=== PATIENT | male | born 1990 | race Caucasian/White ===

== ENCOUNTER 2017-08-14 17:19 | Emergency (ER) | payer OTHER ==
[~2017-08-14] VITALS: Ht 170.2 cm; Wt 74.7 kg
[2017-08-14 18:00] LABS: HEMATOCRIT 42.2 % (38.0-50.0); MCH 30.8 PG (29.0-34.0); MCHC 33.2 G/DL (30.0-36.0); PLATELET COUNT 296 K/uL (156-360); RBC DIS.WIDTH-CV 13.2 % (11.8-14.6); RBC DIS.WIDTH-SD 45.2 % (39-53); RED BLOOD COUNT 4.54 M/uL (4.00-5.50); WHITE BLOOD COUNT 6.7 K/uL (4.1-10.2)
[2017-08-14 18:06] LABS: ALBUMIN 4.4 g/dL (3.2-4.8)
[2017-08-14 18:07] LABS: CHLORIDE 101 mEq/L (99-109); POTASSIUM 4.4 mEq/L (3.7-5.4); SODIUM 139 mEq/L (136-147)
[2017-08-14 18:09] LABS: GLUCOSE 116 mg/dL (70-99); TOTAL PROTEIN 7.7 g/dL (6.4-8.3)
[2017-08-14 18:11] LABS: TOTAL BILIRUBIN 0.2 mg/dL (0.0-1.0)
[2017-08-14 18:12] LABS: ALKALINE PHOSPHATASE 71 IU/L (3-129)
[2017-08-14 18:14] LABS: AST (GOT) 22 IU/L (2-34); UREA NITROGEN (BUN) 11 mg/dL (9-23)
[2017-08-14 18:16] LABS: ALT (GPT) 66 IU/L (3-49)
[2017-08-14 18:26] LABS: GFR ESTIMATE (CALCULATED) > 59 mL/min/ (58.99-99999)
[2017-08-14 19:46] LABS: LIPASE 15 U/L (1.0-51.0)
[2017-08-14] MEDS ORDERED: BENTYL10 MG PO (22:16)
[2017-08-14] MEDS ORDERED: ZANTAC150 MG PO (22:16)
[2017-08-14 22:39] VITALS: BP 116/72
== END 2017-08-14 22:41 | disposition home or self-care (01) ==
LOC: EME 17:19
DX: R10.12 Left upper quadrant pain (principal); R10.13 Epigastric pain; G89.29 Other chronic pain; M79.7 Fibromyalgia; M19.90 Unspecified osteoarthritis, unspecified site; M77.9 Enthesopathy, unspecified; F17.200 Nicotine dependence, unspecified, uncomplicated; Z90.49 Acquired absence of other specified parts of digestive tract
CPT/HCPCS: 74177; 80053; 81003; 83690; 85027; 99281; 99285; J1885; J2405; J7030

== ENCOUNTER 2017-10-07 22:57 | Emergency (ER) | payer OTHER ==
[~2017-10-07] VITALS: Ht 170.2 cm; Wt 70.4 kg
[~2017-10-07 22:57] MED LIST: BENTYL10 MG PO; ZANTAC150 MG PO
[2017-10-07 23:16] LABS: HEMATOCRIT 40.4 % (38.0-50.0); HEMOGLOBIN 14.1 G/DL (12.5-16.6); MCHC 34.9 G/DL (30.0-36.0); MCV 88.8 FL (86-99); PLATELET COUNT 322 K/uL (156-360); RBC DIS.WIDTH-CV 14.5 % (11.8-14.6); RBC DIS.WIDTH-SD 46.7 % (39-53); RED BLOOD COUNT 4.55 M/uL (4.00-5.50); WHITE BLOOD COUNT 6.1 K/uL (4.1-10.2)
[2017-10-07 23:25] LABS: CHLORIDE 109 mEq/L (99-109); SODIUM 143 mEq/L (136-147)
[2017-10-07 23:27] LABS: GLUCOSE 100 mg/dL (70-99)
[2017-10-07 23:30] LABS: SERUM ETHYL ALCOHOL 146 mg/dL
[2017-10-07 23:31] LABS: CREATININE 0.8 mg/dL (0.6-1.3); GFR ESTIMATE (CALCULATED) > 59 mL/min/ (58.99-99999); UREA NITROGEN (BUN) 10 mg/dL (9-23)
[2017-10-08 00:48] LABS: AMPHETAMINE PRESUMPTIVE POSITIVE (500 ng/mL); BARBITURATES NEGATIVE (200 ng/mL); BENZODIAZEPINES PRESUMPTIVE POSITIVE (150 ng/mL); BUPRENORPHINE NEGATIVE (10 ng/mL); COCAINE NEGATIVE (150 ng/mL); METHADONE NEGATIVE (200 ng/mL); METHAMPHETAMINE NEGATIVE (500 ng/mL); OPIATES (MORPHINE) NEGATIVE (100 ng/mL); OXYCODONE NEGATIVE (100 ng/mL); PHENCYCLIDINE NEGATIVE (25 ng/mL); PROPOXYPHENE NEGATIVE (300 ng/mL); THC CANNABINOIDS PRESUMPTIVE POSITIVE (50 ng/mL); TRICYCLIC ANTIDEPRESSANTS NEGATIVE (300 ng/mL)
[2017-10-08 01:37] VITALS: BP 128/80
[2017-10-08 04:47] LABS: BENZODIAZEPINES, URINE SCREEN POSITIVE (200 ng/mL)
== END 2017-10-08 01:59 | disposition home or self-care (01) ==
LOC: EME → EDBD 22:57 → EME 22:57
DX: F32.9 Major depressive disorder, single episode, unspecified (principal); F10.129 Alcohol abuse with intoxication, unspecified; Y90.6 Blood alcohol level of 120-199 mg/100 ml; F90.9 Attention-deficit hyperactivity disorder, unspecified type; F41.9 Anxiety disorder, unspecified; M79.7 Fibromyalgia; Z87.891 Personal history of nicotine dependence
CPT/HCPCS: 80048; 84999; 85027; 90839; 99281; 99285; G0480

== ENCOUNTER 2017-10-11 21:02 | Emergency (ER) | payer OTHER ==
[~2017-10-11] VITALS: Ht 170.2 cm; Wt 71.0 kg
[2017-10-11 21:42] LABS: BASOPHIL (%) 1.1 % (0-1); BASOPHIL COUNT 0.1 K/uL (0-0.1); EOSINOPHIL (%) 2.7 % (0-5); EOSINOPHIL COUNT 0.2 K/uL (0-0.3); HEMATOCRIT 38.9 % (38.0-50.0); HEMOGLOBIN 13.6 G/DL (12.5-16.6); IMMATURE GRANULOCYTE (%) 0.2 % (0.0-0.7); LYMPHOCYTE (%) 45.4 % (15-42); LYMPHOCYTE COUNT 2.9 K/uL (1.0-2.8); MCH 31.5 PG (29.0-34.0); MONOCYTE (%) 10.9 % (3-12); MONOCYTE COUNT 0.7 K/uL (0-0.8); NEUTROPHIL (%) 39.7 % (45-76); NEUTROPHIL COUNT 2.6 K/uL (1.8-6.4); PLATELET COUNT 336 K/uL (156-360); RBC DIS.WIDTH-CV 14.4 % (11.8-14.6); RBC DIS.WIDTH-SD 47.3 % (39-53); RED BLOOD COUNT 4.32 M/uL (4.00-5.50); WHITE BLOOD COUNT 6.4 K/uL (4.1-10.2)
[2017-10-11 21:52] LABS: ALBUMIN 4.1 g/dL (3.2-4.8); CHLORIDE 104 mEq/L (99-109); SODIUM 138 mEq/L (136-147)
[2017-10-11 21:55] LABS: GLUCOSE 108 mg/dL (70-99); TOTAL PROTEIN 6.9 g/dL (6.4-8.3)
[2017-10-11 21:56] LABS: TOTAL BILIRUBIN 0.5 mg/dL (0.0-1.0)
[2017-10-11 21:58] LABS: CREATININE 0.9 mg/dL (0.6-1.3); GFR ESTIMATE (CALCULATED) > 59 mL/min/ (58.99-99999); SERUM ETHYL ALCOHOL < 10 mg/dL
[2017-10-11 21:59] LABS: ALKALINE PHOSPHATASE 79 IU/L (3-129)
[2017-10-11 22:00] LABS: AST (GOT) 26 IU/L (2-34); UREA NITROGEN (BUN) 7 mg/dL (9-23)
[2017-10-11 22:02] LABS: ACETAMINOPHEN (TYLENOL) < 10 mcg/mL (10-30); ALT (GPT) 201 IU/L (3-49); SALICYLATE < 5.0 MG/DL (15-30)
[2017-10-11 22:03] LABS: LIPASE 7 U/L (1.0-51.0)
[2017-10-11 22:30] LABS: APPEARANCE CLEAR ((CLEAR)); BILIRUBIN NEGATIVE; BLOOD NEGATIVE; COLOR YELLOW ((YELLOW)); GLUCOSE (STRIP) NEGATIVE; KETONES NEGATIVE; LEUKOCYTES NEGATIVE; NITRITE NEGATIVE; PROTEIN (STRIP) NEGATIVE; SPECIFIC GRAVITY 1.009 (1.000-1.030)
[2017-10-11 22:39] LABS: AMPHETAMINE PRESUMPTIVE POSITIVE (500 ng/mL); BARBITURATES NEGATIVE (200 ng/mL); BENZODIAZEPINES PRESUMPTIVE POSITIVE (150 ng/mL); BUPRENORPHINE NEGATIVE (10 ng/mL); COCAINE NEGATIVE (150 ng/mL); METHADONE NEGATIVE (200 ng/mL); METHAMPHETAMINE NEGATIVE (500 ng/mL); OPIATES (MORPHINE) NEGATIVE (100 ng/mL); OXYCODONE PRESUMPTIVE POSITIVE (100 ng/mL); PHENCYCLIDINE NEGATIVE (25 ng/mL); PROPOXYPHENE NEGATIVE (300 ng/mL); THC CANNABINOIDS PRESUMPTIVE POSITIVE (50 ng/mL); TRICYCLIC ANTIDEPRESSANTS NEGATIVE (300 ng/mL)
[2017-10-11 23:20] LABS: BENZODIAZEPINES, URINE SCREEN POSITIVE (200 ng/mL)
[2017-10-11 23:23] VITALS: BP 139/84
== END 2017-10-11 23:25 | disposition home or self-care (01) ==
LOC: EME 21:02
PROVIDERS: Emergency Medicine
DX: T40.601A Poisoning by unspecified narcotics, accidental (unintentional), initial encounter (principal); F19.10 Other psychoactive substance abuse, uncomplicated; G89.29 Other chronic pain; M79.7 Fibromyalgia; F31.9 Bipolar disorder, unspecified; F90.9 Attention-deficit hyperactivity disorder, unspecified type; F17.200 Nicotine dependence, unspecified, uncomplicated
CPT/HCPCS: 70450; 71046; 80053; 81003; 82948; 83605; 83690; 84999; 85025; 93005; 99281; 99285; G0480; J0500; J7030

== ENCOUNTER 2017-10-12 12:03 | Emergency (ER) | payer OTHER ==
[~2017-10-12] VITALS: Ht 172.7 cm; Wt 72.9 kg
[2017-10-12 12:24] LABS: BASOPHIL (%) 1.2 % (0-1); BASOPHIL COUNT 0.1 K/uL (0-0.1); EOSINOPHIL (%) 2.9 % (0-5); EOSINOPHIL COUNT 0.2 K/uL (0-0.3); HEMATOCRIT 35.4 % (38.0-50.0); HEMOGLOBIN 12.4 G/DL (12.5-16.6); IMMATURE GRANULOCYTE (%) 0.2 % (0.0-0.7); LYMPHOCYTE (%) 38.4 % (15-42); MCH 31.5 PG (29.0-34.0); MCV 89.8 FL (86-99); MONOCYTE (%) 10.2 % (3-12); MONOCYTE COUNT 0.5 K/uL (0-0.8); NEUTROPHIL (%) 47.1 % (45-76); NEUTROPHIL COUNT 2.4 K/uL (1.8-6.4); PLATELET COUNT 327 K/uL (156-360); RBC DIS.WIDTH-CV 14.5 % (11.8-14.6); RBC DIS.WIDTH-SD 47.8 % (39-53); RED BLOOD COUNT 3.94 M/uL (4.00-5.50); WHITE BLOOD COUNT 5.2 K/uL (4.1-10.2)
[2017-10-12 12:32] LABS: ALBUMIN 3.8 g/dL (3.2-4.8); CHLORIDE 105 mEq/L (99-109); POTASSIUM 3.9 mEq/L (3.7-5.4); SODIUM 138 mEq/L (136-147)
[2017-10-12 12:34] LABS: GLUCOSE 106 mg/dL (70-99); TOTAL PROTEIN 6.3 g/dL (6.4-8.3)
[2017-10-12 12:36] LABS: TOTAL BILIRUBIN 0.4 mg/dL (0.0-1.0)
[2017-10-12 12:37] LABS: SERUM ETHYL ALCOHOL < 10 mg/dL
[2017-10-12 12:38] LABS: ALKALINE PHOSPHATASE 70 IU/L (3-129); CREATININE 0.8 mg/dL (0.6-1.3); GFR ESTIMATE (CALCULATED) > 59 mL/min/ (58.99-99999)
[2017-10-12 12:39] LABS: AST (GOT) 27 IU/L (2-34); DIRECT BILIRUBIN 0.2 mg/dL (0.0-0.3); UREA NITROGEN (BUN) 5 mg/dL (9-23)
[2017-10-12 12:41] LABS: ALT (GPT) 151 IU/L (3-49)
[2017-10-12 13:14] LABS: APPEARANCE CLEAR ((CLEAR)); BILIRUBIN NEGATIVE; BLOOD NEGATIVE; COLOR YELLOW ((YELLOW)); GLUCOSE (STRIP) NEGATIVE; KETONES NEGATIVE; LEUKOCYTES NEGATIVE; NITRITE NEGATIVE; PROTEIN (STRIP) NEGATIVE
[2017-10-12 13:27] LABS: AMPHETAMINE PRESUMPTIVE POSITIVE (500 ng/mL); BARBITURATES NEGATIVE (200 ng/mL); BENZODIAZEPINES PRESUMPTIVE POSITIVE (150 ng/mL); BUPRENORPHINE NEGATIVE (10 ng/mL); COCAINE NEGATIVE (150 ng/mL); METHADONE NEGATIVE (200 ng/mL); METHAMPHETAMINE NEGATIVE (500 ng/mL); OPIATES (MORPHINE) NEGATIVE (100 ng/mL); OXYCODONE PRESUMPTIVE POSITIVE (100 ng/mL); PHENCYCLIDINE NEGATIVE (25 ng/mL); PROPOXYPHENE NEGATIVE (300 ng/mL); THC CANNABINOIDS PRESUMPTIVE POSITIVE (50 ng/mL); TRICYCLIC ANTIDEPRESSANTS NEGATIVE (300 ng/mL)
[2017-10-12 14:19] LABS: BENZODIAZEPINES, URINE SCREEN POSITIVE (200 ng/mL)
[2017-10-12 16:15] VITALS: BP 117/83
== END 2017-10-12 17:25 | disposition home or self-care (01) ==
LOC: EME 12:03
PROVIDERS: Emergency Medicine
DX: F11.129 Opioid abuse with intoxication, unspecified (principal); T40.2X1A Poisoning by other opioids, accidental (unintentional), initial encounter; M19.90 Unspecified osteoarthritis, unspecified site; M79.7 Fibromyalgia; F90.9 Attention-deficit hyperactivity disorder, unspecified type; F31.9 Bipolar disorder, unspecified; F17.200 Nicotine dependence, unspecified, uncomplicated
CPT/HCPCS: 70450; 71045; 80048; 80076; 81003; 84999; 85025; 93005; 99281; 99285; G0480; J7030

== ENCOUNTER 2017-10-17 19:33 | Emergency (ER) | payer OTHER ==
[~2017-10-17] VITALS: Ht 170.2 cm; Wt 71.6 kg
[2017-10-17 22:26] LABS: HEMATOCRIT 36.4 % (38.0-50.0); MCH 32.1 PG (29.0-34.0); MCHC 35.7 G/DL (30.0-36.0); MCV 89.9 FL (86-99); PLATELET COUNT 305 K/uL (156-360); RBC DIS.WIDTH-CV 14.6 % (11.8-14.6); RED BLOOD COUNT 4.05 M/uL (4.00-5.50); WHITE BLOOD COUNT 8.3 K/uL (4.1-10.2)
[2017-10-17 22:38] LABS: ALBUMIN 3.6 g/dL (3.2-4.8); CHLORIDE 105 mEq/L (99-109); POTASSIUM 3.6 mEq/L (3.7-5.4)
[2017-10-17 22:40] LABS: APPEARANCE SL.HAZY ((CLEAR)); BILIRUBIN NEGATIVE; BLOOD SMALL; COLOR YELLOW ((YELLOW)); GLUCOSE (STRIP) NEGATIVE; KETONES NEGATIVE; LEUKOCYTES NEGATIVE; NITRITE NEGATIVE; PROTEIN (STRIP) NEGATIVE; SPECIFIC GRAVITY 1.013 (1.000-1.030)
[2017-10-17 22:40] LABS: GLUCOSE 114 mg/dL (70-99); TOTAL PROTEIN 6.2 g/dL (6.4-8.3)
[2017-10-17 22:41] LABS: SODIUM 145 mEq/L (136-147)
[2017-10-17 22:43] LABS: SERUM ETHYL ALCOHOL < 10 mg/dL
[2017-10-17 22:43] LABS: BACTERIA NONE SEEN /HPF; EPITHELIAL CELLS NONE SEEN /HPF; MUCUS TRACE /LPF; RED BLOOD CELLS 30-40 /HPF (0-5); WHITE BLOOD CELLS 0-5 /HPF (0-5)
[2017-10-17 22:44] LABS: CREATININE 0.8 mg/dL (0.6-1.3); GFR ESTIMATE (CALCULATED) > 59 mL/min/ (58.99-99999)
[2017-10-17 22:45] LABS: ALKALINE PHOSPHATASE 68 IU/L (3-129)
[2017-10-17 22:46] LABS: AST (GOT) 18 IU/L (2-34); TOTAL BILIRUBIN 0.2 mg/dL (0.0-1.0); UREA NITROGEN (BUN) 11 mg/dL (9-23)
[2017-10-17 22:47] LABS: SALICYLATE < 5.0 MG/DL (15-30)
[2017-10-17 22:48] LABS: ACETAMINOPHEN (TYLENOL) < 10 mcg/mL (10-30); ALT (GPT) 41 IU/L (3-49)
[2017-10-17 22:59] LABS: AMPHETAMINE NEGATIVE (500 ng/mL); BARBITURATES NEGATIVE (200 ng/mL); BENZODIAZEPINES PRESUMPTIVE POSITIVE (150 ng/mL); BUPRENORPHINE NEGATIVE (10 ng/mL); COCAINE NEGATIVE (150 ng/mL); METHADONE NEGATIVE (200 ng/mL); METHAMPHETAMINE NEGATIVE (500 ng/mL); OPIATES (MORPHINE) NEGATIVE (100 ng/mL); OXYCODONE NEGATIVE (100 ng/mL); PHENCYCLIDINE NEGATIVE (25 ng/mL); PROPOXYPHENE NEGATIVE (300 ng/mL); THC CANNABINOIDS PRESUMPTIVE POSITIVE (50 ng/mL); TRICYCLIC ANTIDEPRESSANTS NEGATIVE (300 ng/mL)
[2017-10-17 23:48] VITALS: BP 111/67
[2017-10-18 00:34] LABS: BENZODIAZEPINES, URINE SCREEN POSITIVE (200 ng/mL)
== END 2017-10-17 23:49 | disposition home or self-care (01) ==
LOC: EME 19:33
PROVIDERS: Emergency Medicine
DX: S09.90XA Unspecified injury of head, initial encounter (principal); S16.1XXA Strain of muscle, fascia and tendon at neck level, initial encounter; W01.0XXA Fall on same level from slipping, tripping and stumbling without subsequent striking against object, initial encounter; Y93.01 Activity, walking, marching and hiking; F12.90 Cannabis use, unspecified, uncomplicated; Z72.89 Other problems related to lifestyle; Z59.0 Homelessness
CPT/HCPCS: 70450; 71045; 72125; 80053; 80175 90; 81003; 82140; 84999; 85027; 93005; 99281; 99284; G0480

== ENCOUNTER 2017-10-18 13:02 | Emergency (ER) | payer OTHER ==
[~2017-10-18] VITALS: Ht 170.2 cm; Wt 74.9 kg
[2017-10-18 14:43] VITALS: BP 138/84
== END 2017-10-18 14:44 | disposition home or self-care (01) ==
LOC: EME 13:02
DX: S80.01XA Contusion of right knee, initial encounter (principal); W17.81XA Fall down embankment (hill), initial encounter; W22.09XA Striking against other stationary object, initial encounter; Y92.480 Sidewalk as the place of occurrence of the external cause; Y93.01 Activity, walking, marching and hiking; Z91.81 History of falling
CPT/HCPCS: 73564; 99281; 99284

== ENCOUNTER 2017-10-18 19:21 | Emergency (ER) | payer OTHER ==
[~2017-10-18] VITALS: Ht 170.2 cm; Wt 72.7 kg
[2017-10-18 20:19] LABS: HEMATOCRIT 37.2 % (38.0-50.0); HEMOGLOBIN 13.1 G/DL (12.5-16.6); MCH 31.6 PG (29.0-34.0); MCHC 35.2 G/DL (30.0-36.0); MCV 89.6 FL (86-99); PLATELET COUNT 302 K/uL (156-360); RBC DIS.WIDTH-CV 14.6 % (11.8-14.6); RBC DIS.WIDTH-SD 48.1 % (39-53); RED BLOOD COUNT 4.15 M/uL (4.00-5.50)
[2017-10-18 20:31] LABS: CHLORIDE 102 mEq/L (99-109); POTASSIUM 3.9 mEq/L (3.7-5.4); SODIUM 140 mEq/L (136-147)
[2017-10-18 20:33] LABS: GLUCOSE 93 mg/dL (70-99)
[2017-10-18 20:36] LABS: SERUM ETHYL ALCOHOL < 10 mg/dL
[2017-10-18 20:37] LABS: CREATININE 0.9 mg/dL (0.6-1.3); GFR ESTIMATE (CALCULATED) > 59 mL/min/ (58.99-99999)
[2017-10-18 20:38] LABS: UREA NITROGEN (BUN) 8 mg/dL (9-23)
[2017-10-18 20:40] LABS: AMPHETAMINE NEGATIVE (500 ng/mL); BARBITURATES NEGATIVE (200 ng/mL); BENZODIAZEPINES PRESUMPTIVE POSITIVE (150 ng/mL); BUPRENORPHINE NEGATIVE (10 ng/mL); COCAINE NEGATIVE (150 ng/mL); METHADONE NEGATIVE (200 ng/mL); METHAMPHETAMINE NEGATIVE (500 ng/mL); OPIATES (MORPHINE) NEGATIVE (100 ng/mL); OXYCODONE NEGATIVE (100 ng/mL); PHENCYCLIDINE NEGATIVE (25 ng/mL); PROPOXYPHENE NEGATIVE (300 ng/mL); THC CANNABINOIDS PRESUMPTIVE POSITIVE (50 ng/mL); TRICYCLIC ANTIDEPRESSANTS NEGATIVE (300 ng/mL)
[2017-10-18 21:13] LABS: BENZODIAZEPINES, URINE SCREEN POSITIVE (200 ng/mL)
[2017-10-18 23:13] VITALS: BP 146/81
== END 2017-10-18 23:14 | disposition home or self-care (01) ==
LOC: EME 19:21
PROVIDERS: Emergency Medicine
DX: F32.9 Major depressive disorder, single episode, unspecified (principal)
CPT/HCPCS: 80048; 84999; 85027; 90839; 99281; 99284; G0480

== ENCOUNTER 2017-10-22 20:07 | Emergency (ER) | payer OTHER ==
[~2017-10-22] VITALS: Ht 170.2 cm; Wt 70.7 kg
[2017-10-22 20:39] LABS: HEMATOCRIT 41.1 % (38.0-50.0); HEMOGLOBIN 14.7 G/DL (12.5-16.6); MCH 31.9 PG (29.0-34.0); MCHC 35.8 G/DL (30.0-36.0); MCV 89.2 FL (86-99); PLATELET COUNT 359 K/uL (156-360); RBC DIS.WIDTH-CV 14.6 % (11.8-14.6); RBC DIS.WIDTH-SD 47.5 % (39-53); RED BLOOD COUNT 4.61 M/uL (4.00-5.50); WHITE BLOOD COUNT 8.9 K/uL (4.1-10.2)
[2017-10-22 20:47] LABS: ALBUMIN 4.3 g/dL (3.2-4.8); CHLORIDE 102 mEq/L (99-109); POTASSIUM 4.3 mEq/L (3.7-5.4); SODIUM 136 mEq/L (136-147)
[2017-10-22 20:49] LABS: GLUCOSE 97 mg/dL (70-99)
[2017-10-22 20:53] LABS: ALKALINE PHOSPHATASE 77 IU/L (3-129); CREATININE 0.9 mg/dL (0.6-1.3); GFR ESTIMATE (CALCULATED) > 59 mL/min/ (58.99-99999)
[2017-10-22 20:54] LABS: UREA NITROGEN (BUN) 15 mg/dL (9-23)
[2017-10-22 20:56] LABS: ALT (GPT) 29 IU/L (3-49); LIPASE 34 U/L (1.0-51.0)
[2017-10-22 20:59] LABS: AST (GOT) 27 IU/L (2-34); TOTAL BILIRUBIN 0.3 mg/dL (0.0-1.0); TOTAL PROTEIN 7.4 g/dL (6.4-8.3)
[2017-10-22] MEDS ORDERED: LIBRIUM25 MG PO (21:00)
[2017-10-22 23:08] VITALS: BP 120/71
== END 2017-10-22 23:17 | disposition home or self-care (01) ==
LOC: EME → EDBD 20:07 → EME 23:17
PROVIDERS: Emergency Medicine
DX: F13.239 Sedative, hypnotic or anxiolytic dependence with withdrawal, unspecified (principal); F31.9 Bipolar disorder, unspecified; M79.7 Fibromyalgia; F17.200 Nicotine dependence, unspecified, uncomplicated
CPT/HCPCS: 80053; 83690; 85027; 99281; 99285; J2765; J7030

== ENCOUNTER 2017-10-26 05:15 | Emergency (ER) | payer OTHER ==
[~2017-10-26] VITALS: Ht 170.2 cm; Wt 65.8 kg
[~2017-10-26 05:15] MED LIST changes: +LIBRIUM25 MG PO
[2017-10-26] MEDS ORDERED: PROTONIX40 MG PO (05:51)
[2017-10-26 06:13] VITALS: BP 136/85
== END 2017-10-26 06:15 | disposition home or self-care (01) ==
LOC: EME → EDBD 05:15 → EME 05:15
DX: R10.13 Epigastric pain (principal); M79.7 Fibromyalgia; F31.9 Bipolar disorder, unspecified; F17.200 Nicotine dependence, unspecified, uncomplicated
CPT/HCPCS: 99281; 99284

== ENCOUNTER 2017-11-05 20:12 | Emergency (ER) | payer OTHER ==
[~2017-11-05] VITALS: Ht 165.1 cm; Wt 72.3 kg
[~2017-11-05 20:12] MED LIST changes: +PROTONIX40 MG PO
[2017-11-05 21:57] LABS: APPEARANCE CLEAR ((CLEAR)); BILIRUBIN NEGATIVE; BLOOD NEGATIVE; COLOR YELLOW ((YELLOW)); GLUCOSE (STRIP) NEGATIVE; KETONES NEGATIVE; LEUKOCYTES NEGATIVE; NITRITE NEGATIVE; PROTEIN (STRIP) NEGATIVE; SPECIFIC GRAVITY 1.019 (1.000-1.030); UCUL ADDED? NO; UROBILINOGEN 0.2 MG/DL (0.2-1.0)
[2017-11-05 22:13] LABS: AMPHETAMINE NEGATIVE (500 ng/mL); BARBITURATES NEGATIVE (200 ng/mL); BENZODIAZEPINES NEGATIVE (150 ng/mL); BUPRENORPHINE NEGATIVE (10 ng/mL); COCAINE PRESUMPTIVE POSITIVE (150 ng/mL); METHADONE NEGATIVE (200 ng/mL); METHAMPHETAMINE NEGATIVE (500 ng/mL); OPIATES (MORPHINE) NEGATIVE (100 ng/mL); OXYCODONE NEGATIVE (100 ng/mL); PHENCYCLIDINE NEGATIVE (25 ng/mL); PROPOXYPHENE NEGATIVE (300 ng/mL); THC CANNABINOIDS NEGATIVE (50 ng/mL); TRICYCLIC ANTIDEPRESSANTS NEGATIVE (300 ng/mL)
[2017-11-05 22:31] LABS: HEMOGLOBIN 15.3 G/DL (12.5-16.6); MCH 31.9 PG (29.0-34.0); MCHC 35.6 G/DL (30.0-36.0); MCV 89.8 FL (86-99); PLATELET COUNT 393 K/uL (156-360); RBC DIS.WIDTH-CV 14.6 % (11.8-14.6); RBC DIS.WIDTH-SD 48.4 % (39-53); RED BLOOD COUNT 4.79 M/uL (4.00-5.50); WHITE BLOOD COUNT 9.1 K/uL (4.1-10.2)
[2017-11-05 22:47] LABS: ALBUMIN 4.6 g/dL (3.2-4.8)
[2017-11-05 22:48] LABS: CHLORIDE 106 mEq/L (99-109); POTASSIUM 4.7 mEq/L (3.7-5.4); SODIUM 142 mEq/L (136-147)
[2017-11-05 22:50] LABS: GLUCOSE 100 mg/dL (70-99); TOTAL PROTEIN 7.6 g/dL (6.4-8.3)
[2017-11-05 22:52] LABS: TOTAL BILIRUBIN 0.3 mg/dL (0.0-1.0)
[2017-11-05 22:53] LABS: ALKALINE PHOSPHATASE 83 IU/L (3-129); SERUM ETHYL ALCOHOL 185 mg/dL
[2017-11-05 22:54] LABS: GFR ESTIMATE (CALCULATED) > 59 mL/min/ (58.99-99999)
[2017-11-05 22:55] LABS: AST (GOT) 23 IU/L (2-34); UREA NITROGEN (BUN) 13 mg/dL (9-23)
[2017-11-05 22:57] LABS: ALT (GPT) 47 IU/L (3-49)
[2017-11-06] MEDS ORDERED: ZOFRAN4 MG PO (00:21)
[2017-11-06] MEDS ORDERED: BENTYL20 MG PO (00:21)
[2017-11-06 00:32] VITALS: BP 113/80
== END 2017-11-06 00:33 | disposition home or self-care (01) ==
LOC: EME 20:12
PROVIDERS: Nurse Practitioner Family
DX: R10.13 Epigastric pain (principal); F14.10 Cocaine abuse, uncomplicated; F10.10 Alcohol abuse, uncomplicated; Y90.6 Blood alcohol level of 120-199 mg/100 ml; F17.200 Nicotine dependence, unspecified, uncomplicated; M79.7 Fibromyalgia
CPT/HCPCS: 74177; 80053; 81003; 84999; 85027; 99281; 99285; G0480; J0500

== ENCOUNTER 2017-11-10 11:07 | Emergency (ER) | payer OTHER ==
[~2017-11-10] VITALS: Ht 170.2 cm; Wt 75.3 kg
[~2017-11-10 11:07] MED LIST changes: +BENTYL20 MG PO; +ZOFRAN4 MG PO
[2017-11-10 11:51] LABS: BASOPHIL (%) 1.5 % (0-1); BASOPHIL COUNT 0.1 K/uL (0-0.1); EOSINOPHIL COUNT 0.2 K/uL (0-0.3); HEMATOCRIT 40.4 % (38.0-50.0); HEMOGLOBIN 14.2 G/DL (12.5-16.6); IMMATURE GRANULOCYTE (%) 0.3 % (0.0-0.7); LYMPHOCYTE (%) 36.3 % (15-42); LYMPHOCYTE COUNT 2.2 K/uL (1.0-2.8); MCHC 35.1 G/DL (30.0-36.0); MONOCYTE COUNT 0.5 K/uL (0-0.8); NEUTROPHIL (%) 48.9 % (45-76); NEUTROPHIL COUNT 2.9 K/uL (1.8-6.4); PLATELET COUNT 316 K/uL (156-360); RBC DIS.WIDTH-CV 14.5 % (11.8-14.6); RBC DIS.WIDTH-SD 48.5 % (39-53); RED BLOOD COUNT 4.44 M/uL (4.00-5.50)
[2017-11-10 12:02] LABS: CHLORIDE 104 mEq/L (99-109); POTASSIUM 4.5 mEq/L (3.7-5.4); SODIUM 139 mEq/L (136-147)
[2017-11-10 12:04] LABS: GLUCOSE 96 mg/dL (70-99)
[2017-11-10 12:06] LABS: AMPHETAMINE NEGATIVE (500 ng/mL); BARBITURATES NEGATIVE (200 ng/mL); BENZODIAZEPINES NEGATIVE (150 ng/mL); BUPRENORPHINE NEGATIVE (10 ng/mL); COCAINE PRESUMPTIVE POSITIVE (150 ng/mL); METHADONE NEGATIVE (200 ng/mL); METHAMPHETAMINE NEGATIVE (500 ng/mL); OPIATES (MORPHINE) NEGATIVE (100 ng/mL); OXYCODONE NEGATIVE (100 ng/mL); PHENCYCLIDINE NEGATIVE (25 ng/mL); PROPOXYPHENE NEGATIVE (300 ng/mL); THC CANNABINOIDS NEGATIVE (50 ng/mL); TRICYCLIC ANTIDEPRESSANTS NEGATIVE (300 ng/mL)
[2017-11-10 12:07] LABS: SERUM ETHYL ALCOHOL < 10 mg/dL
[2017-11-10 12:08] LABS: CREATININE 0.8 mg/dL (0.6-1.3); GFR ESTIMATE (CALCULATED) > 59 mL/min/ (58.99-99999)
[2017-11-10 12:09] LABS: UREA NITROGEN (BUN) 16 mg/dL (9-23)
[2017-11-10 13:23] VITALS: BP 141/89
== END 2017-11-10 13:28 | disposition home or self-care (01) ==
LOC: EME 11:07
PROVIDERS: Emergency Medicine
DX: F32.9 Major depressive disorder, single episode, unspecified (principal); Z76.5 Malingerer [conscious simulation]; M19.90 Unspecified osteoarthritis, unspecified site; M79.7 Fibromyalgia; F31.9 Bipolar disorder, unspecified; F17.200 Nicotine dependence, unspecified, uncomplicated; Z87.39 Personal history of other diseases of the musculoskeletal system and connective tissue
CPT/HCPCS: 80048; 84999; 85025; 90839; 99281; 99285; G0480

== ENCOUNTER 2018-01-06 15:49 | Emergency (ER) | payer OTHER ==
[~2018-01-06] VITALS: Ht 170.2 cm; Wt 66.5 kg
[2018-01-06 17:36] VITALS: BP 132/84
== END 2018-01-06 17:37 | disposition home or self-care (01) ==
LOC: EME 15:49
DX: S16.1XXA Strain of muscle, fascia and tendon at neck level, initial encounter (principal); M25.572 Pain in left ankle and joints of left foot; Y04.8XXA Assault by other bodily force, initial encounter
CPT/HCPCS: 72040; 73610; 99281; 99284